=== PATIENT | female | born 1985 | race Hispanic/Latino ===

== ENCOUNTER 2018-05-14 19:54 | Emergency (ER) | payer SELFPAY ==
[~2018-05-14] VITALS: Ht 162.6 cm; Wt 111.0 kg
[~2018-05-14 19:54] MED LIST: AMLODIPINE10 MG OR; ANAPROX DS550 MG OR; CIPROFLOXACN500 MG PO; CLONIDINE0.1 MG OR; CYCLOBENZAPR10 MG PO; DENIES CURRENT MEDS; ERYTHROMYCIN BAS1 GM OS; FERROUS SUL1 XX; FLEXERIL; IRON18 M1 PO; LORTAB 7.57.5 MG PO; LORTAB5 PO; MACRODANTIN50 MG PO; MEDDOSEPAK PO; METOPROL TAR50 MG OR; NAPROSYN500 MG PO; NO; NO MEDS; NORCO1 TA1 PO; PERCOCET 5/325M1 TAB PO; PROTONIX40 M2 PO; PROVENTIL0.083 % IN; TAM75CAP PO; TRAMADOL HCL50 MG OR; ULTRAM50 M1 PO
[2018-05-14 20:20] LABS: INFLUENZA A NONE DETECTED (NONE DETECT)
[2018-05-14 20:21] LABS: INFLUENZA B NONE DETECTED (NONE DETECT)
[2018-05-14] MEDS ORDERED: CEPHALEXIN500 M1 PO (20:24)
[2018-05-14] MEDS ORDERED: ROBITUSSIN AC10 ML PO (20:24)
[2018-05-14 21:00] VITALS: BP 170/77
== END 2018-05-14 21:02 | disposition home or self-care (01) | DRG 153 ==
LOC: ED 19:54
PROVIDERS: Emergency Medicine
DX: J06.9 Acute upper respiratory infection, unspecified (principal); R05 Cough; R09.81 Nasal congestion; R51 Headache

== ENCOUNTER 2018-06-01 15:54 | Emergency (ER) | payer SELFPAY ==
[~2018-06-01] VITALS: Ht 162.6 cm; Wt 111.0 kg
[~2018-06-01 15:54] MED LIST changes: +CEPHALEXIN500 M1 PO; +ROBITUSSIN AC10 ML PO
[2018-06-01] MEDS ORDERED: FLEXERIL PO (16:52)
[2018-06-01] MEDS ORDERED: NAPROSYN500 MG PO (16:52)
[2018-06-01 16:54] VITALS: BP 147/93
== END 2018-06-01 17:00 | disposition home or self-care (01) | DRG 552 ==
LOC: ED 15:54
DX: S13.9XXA Sprain of joints and ligaments of unspecified parts of neck, initial encounter (principal); X58.XXXA Exposure to other specified factors, initial encounter

== ENCOUNTER 2018-09-27 19:46 | Emergency (ER) | payer SELFPAY ==
[~2018-09-27] VITALS: Ht 162.6 cm; Wt 113.2 kg
[~2018-09-27 19:46] MED LIST changes: +FLEXERIL PO
[2018-09-27] MEDS ORDERED: VOLTAREN - GENE75 MG PO (22:15)
[2018-09-27] MEDS ORDERED: TRAMADOL HCL50 MG PO (22:15)
[2018-09-27 22:35] VITALS: BP 151/85
== END 2018-09-27 22:35 | disposition home or self-care (01) | DRG 563 ==
LOC: ED 19:46
DX: S39.012A Strain of muscle, fascia and tendon of lower back, initial encounter (principal); M54.16 Radiculopathy, lumbar region

== ENCOUNTER 2019-07-12 | Emergency (ER) | payer SELFPAY ==
[~2019-07-12] MED LIST changes: +TRAMADOL HCL50 MG PO; +VOLTAREN - GENE75 MG PO
[2019-07-12] MEDS ORDERED: GUAIFENESIN AC PO (15:15)
[2019-07-12] MEDS ORDERED: PROVENTIL108 MCG/AC IN (15:15)
[2019-07-12] MEDS ORDERED: ZITHROMAX250 MG PO (15:15)
[2019-07-12] MEDS ORDERED: MEDDOSEPAK PO (15:15)
== END 2019-07-12 15:29 | disposition home or self-care (01) | DRG 203 ==
DX: J45.909 Unspecified asthma, uncomplicated (principal); J06.9 Acute upper respiratory infection, unspecified; R07.81 Pleurodynia

== ENCOUNTER 2019-08-24 | Emergency (ER) | payer SELFPAY ==
[~2019-08-24] MED LIST changes: +GUAIFENESIN AC PO; +PROVENTIL108 MCG/AC IN; +ZITHROMAX250 MG PO
[2019-08-24 08:51] LABS: URINE BILIRUBIN - DIPSTICK NEGATIVE (NEGATIVE); URINE BLOOD DIPSTICK LARGE (NEGATIVE); URINE COLOR YELLOW; URINE GLUCOSE - DIPSTICK NEGATIVE (NEGATIVE); URINE KETONE NEGATIVE (NEGATIVE); URINE LEUK ESTERASE NEGATIVE (NEGATIVE); URINE NITRITE - DIPSTICK NEGATIVE (Negative); URINE PH 5.5 (4.5-8.0); URINE PROTEIN - DIPSTICK NEGATIVE (NEG-TRACE); URINE SPECIFIC GRAVITY 1.025
[2019-08-24 08:54] LABS: URINE WBC 0-2 WBC/hpf (0-5)
[2019-08-24] MEDS ORDERED: TAM75CAP PO (09:54)
== END 2019-08-24 10:15 | disposition home or self-care (01) | DRG 153 ==
PROVIDERS: Emergency Medicine
DX: J11.1 Influenza due to unidentified influenza virus with other respiratory manifestations (principal)

== ENCOUNTER 2020-06-03 15:05 | Emergency (ER) | payer SELFPAY ==
[~2020-06-03] VITALS: Ht 162.6 cm; Wt 90.0 kg
[2020-06-03 18:08] LABS: URINE BILIRUBIN - DIPSTICK NEGATIVE (NEGATIVE); URINE BLOOD DIPSTICK NEGATIVE (NEGATIVE); URINE COLOR YELLOW; URINE GLUCOSE - DIPSTICK 100 mg/dL (NEGATIVE); URINE KETONE NEGATIVE (NEGATIVE); URINE NITRITE - DIPSTICK NEGATIVE (Negative); URINE PROTEIN - DIPSTICK NEGATIVE (NEG-TRACE); URINE UROBILINOGEN - DIPSTICK 0.2 E.U./dL (0.2)
[2020-06-03 18:23] LABS: URINE LEUK ESTERASE SMALL (NEGATIVE)
[2020-06-03 18:24] LABS: URINE BACTERIA FEW hpf; URINE EPITHELIAL CELLS FEW EPI/hpf (0-FEW)
[2020-06-03] MEDS ORDERED: CEPHALEXIN500 MG PO (18:46)
[2020-06-03] MEDS ORDERED: ROBITUSSIN AC10 ML PO (18:46)
[2020-06-03 19:34] VITALS: BP 164/84
== END 2020-06-03 19:38 | disposition home or self-care (01) | DRG 202 ==
LOC: ED 15:05
PROVIDERS: Emergency Medicine
DX: J45.909 Unspecified asthma, uncomplicated (principal); N39.0 Urinary tract infection, site not specified; I34.1 Nonrheumatic mitral (valve) prolapse; J06.9 Acute upper respiratory infection, unspecified; Z20.828 Contact with and (suspected) exposure to other viral communicable diseases

== ENCOUNTER 2020-08-08 02:09 | Emergency (ER) | payer OTHER ==
[~2020-08-08] VITALS: Ht 162.6 cm; Wt 100.0 kg
[~2020-08-08 02:09] MED LIST changes: +CEPHALEXIN500 MG PO
[2020-08-08 03:17] LABS: HEMATOCRIT 28.6 % (37.0-47.0); IMMATURE GRANULOCYTES 0.4 % (0.0-5.0); MEAN CELL VOLUME 63.7 fL CALC (80.0-100.0); MEAN CORPUSCULAR HGB 17.8 pG CALC (26.0-32.0); NEUT# 2.98 thou/uL (2.00-7.15); RED BLOOD COUNT 4.49 mill/uL (4.20-5.60); RED CELL DISTRI WIDTH 17.6 % (11.5-15.5)
[2020-08-08 03:18] LABS: URINE BILIRUBIN - DIPSTICK NEGATIVE (NEGATIVE); URINE BLOOD DIPSTICK LARGE (NEGATIVE); URINE COLOR YELLOW; URINE GLUCOSE - DIPSTICK NEGATIVE (NEGATIVE); URINE KETONE NEGATIVE (NEGATIVE); URINE SPECIFIC GRAVITY 1.015; URINE UROBILINOGEN - DIPSTICK 0.2 E.U./dL (0.2)
[2020-08-08 03:19] LABS: URINE LEUK ESTERASE SMALL (NEGATIVE); URINE NITRITE - DIPSTICK POSITIVE (Negative)
[2020-08-08 03:23] LABS: URINE PROTEIN - DIPSTICK NEGATIVE (NEG-TRACE)
[2020-08-08 03:26] LABS: URINE RBC 25-50 RBC/hpf (0-5)
[2020-08-08 03:27] LABS: URINE BACTERIA MANY hpf; URINE EPITHELIAL CELLS FEW EPI/hpf (0-FEW)
[2020-08-08 03:28] LABS: ALBUMIN 4.1 g/dL (3.2-5.0); ALKALINE PHOSPHATASE 95 u/l (38-126); AMYLASE 30 u/l (30-110); BILIRUBIN, TOTAL 0.5 mg/dL (0.0-1.4); BUN 9 mg/dL (7-17); BUN/CREATININE RATIO 16 (12-20 (CALC)); CARBON DIOXIDE 21 mmol/l (22-30); CHLORIDE 106 mmol/l (95-108); CREATININE 0.6 mg/dL (0.5-1.0); GFR > 60 ML/MIN (>=60 (CALC)); GFR FOR AFR.AMER. > 60 ML/MIN (>=60 (CALC)); LIPASE 69 u/l (23-300); POTASSIUM 3.9 mmol/l (3.5-5.1); SGOT/AST 20 u/l (14-36); TOTAL PROTEIN 7.8 g/dL (6.3-8.2)
[2020-08-08 03:45] LABS: ANION GAP 14 (6-22 (CALC)); SODIUM 137 mmol/l (137-146)
[2020-08-08 06:34] VITALS: BP 148/71
[2020-08-08] MEDS ORDERED: PROTONIX40 MG PO (06:39)
[2020-08-08] MEDS ORDERED: CIPROFLOXACN500 MG PO (06:40)
== END 2020-08-08 06:55 | disposition home or self-care (01) | DRG 690 ==
LOC: ED 02:09
PROVIDERS: Emergency Medicine
DX: N39.0 Urinary tract infection, site not specified (principal); I10 Essential (primary) hypertension; J45.909 Unspecified asthma, uncomplicated; I34.1 Nonrheumatic mitral (valve) prolapse; B96.20 Unspecified Escherichia coli [E. coli] as the cause of diseases classified elsewhere
CPT/HCPCS: J1956; Q9967; S0164

== ENCOUNTER 2020-10-09 21:35 | Emergency (ER) | payer SELFPAY ==
[~2020-10-09] VITALS: Ht 162.6 cm; Wt 97.0 kg
[~2020-10-09 21:35] MED LIST changes: +PROTONIX40 MG PO
[2020-10-09 22:28] LABS: HEMATOCRIT 28.2 % (37.0-47.0); HEMOGLOBIN 8.1 g/dl (12.0-16.0); IMMATURE GRANULOCYTES 0.1 % (0.0-5.0); MEAN CELL VOLUME 63.2 fL CALC (80.0-100.0); MEAN CORPUSCULAR HGB 18.2 pG CALC (26.0-32.0); MEAN CORPUSCULAR HGB CONC 28.7 g/dL CAL (32.0-36.0); NEUT# 4.06 thou/uL (2.00-7.15); RED BLOOD COUNT 4.46 mill/uL (4.20-5.60); RED CELL DISTRI WIDTH 18.1 % (11.5-15.5)
[2020-10-09 23:40] VITALS: BP 113/67
== END 2020-10-09 23:40 | disposition home or self-care (01) | DRG 866 ==
LOC: ED 21:35
PROVIDERS: Family Medicine
DX: B34.9 Viral infection, unspecified (principal); I10 Essential (primary) hypertension; J45.909 Unspecified asthma, uncomplicated; I34.1 Nonrheumatic mitral (valve) prolapse; Z20.822 Contact with and (suspected) exposure to COVID-19

== ENCOUNTER 2021-02-22 05:49 | Emergency (ER) | payer MEDICAID ==
[2021-02-22 06:30] LABS: URINE BILIRUBIN - DIPSTICK NEGATIVE (NEGATIVE); URINE COLOR YELLOW; URINE GLUCOSE - DIPSTICK NEGATIVE (NEGATIVE); URINE KETONE NEGATIVE (NEGATIVE); URINE PH 6.5 (4.5-8.0); URINE PROTEIN - DIPSTICK NEGATIVE (NEG-TRACE); URINE SPECIFIC GRAVITY <=1.005; URINE UROBILINOGEN - DIPSTICK 0.2 E.U./dL (0.2)
[2021-02-22 06:33] LABS: URINE BLOOD DIPSTICK NEGATIVE (NEGATIVE); URINE LEUK ESTERASE SMALL (NEGATIVE); URINE NITRITE - DIPSTICK NEGATIVE (Negative)
[2021-02-22 06:36] LABS: URINE BACTERIA MODERATE hpf; URINE EPITHELIAL CELLS MODERATE EPI/hpf (0-FEW)
[2021-02-22 06:52] LABS: HEMATOCRIT 29.6 % (37.0-47.0); HEMOGLOBIN 8.5 g/dl (12.0-16.0); IMMATURE GRANULOCYTES 0.2 % (0.0-5.0); MEAN CELL VOLUME 64.3 fL CALC (80.0-100.0); MEAN CORPUSCULAR HGB 18.5 pG CALC (26.0-32.0); MEAN CORPUSCULAR HGB CONC 28.7 g/dL CAL (32.0-36.0); NEUT# 3.3 thou/uL (2.00-7.15); RED BLOOD COUNT 4.6 mill/uL (4.20-5.60); RED CELL DISTRI WIDTH 17.7 % (11.5-15.5)
[2021-02-22 07:20] LABS: ALBUMIN 4.3 g/dL (3.2-5.0); ALKALINE PHOSPHATASE 81 u/l (38-126); ANION GAP 12 (6-22 (CALC)); BILIRUBIN, TOTAL 0.5 mg/dL (0.0-1.4); BUN 10 mg/dL (7-17); BUN/CREATININE RATIO 19 (12-20 (CALC)); CARBON DIOXIDE 23 mmol/l (22-30); CHLORIDE 105 mmol/l (95-108); CREATININE 0.5 mg/dL (0.5-1.0); GFR > 60 ML/MIN (>=60 (CALC)); GFR FOR AFR.AMER. > 60 ML/MIN (>=60 (CALC)); POTASSIUM 4.2 mmol/l (3.5-5.1); SGOT/AST 33 u/l (14-36); SODIUM 136 mmol/l (137-146); TOTAL PROTEIN 8.4 g/dL (6.3-8.2)
[2021-02-22 07:32] LABS: MYOGLOBIN 19 ng/mL (0 - 62)
[2021-02-22] MEDS ORDERED: OMNICEF300 M1 PO (08:49)
[2021-02-22 09:06] VITALS: BP 169/93
== END 2021-02-22 09:17 | disposition home or self-care (01) | DRG 552 ==
LOC: ED 05:49
PROVIDERS: Emergency Medicine
DX: M54.2 Cervicalgia (principal); M25.512 Pain in left shoulder; I10 Essential (primary) hypertension; J45.909 Unspecified asthma, uncomplicated; I34.1 Nonrheumatic mitral (valve) prolapse; F17.210 Nicotine dependence, cigarettes, uncomplicated; Z20.822 Contact with and (suspected) exposure to COVID-19

== ENCOUNTER 2021-03-02 06:10 | Emergency (ER) | payer MEDICAID ==
[~2021-03-02] VITALS: Ht 162.6 cm; Wt 92.0 kg
[~2021-03-02 06:10] MED LIST changes: +OMNICEF300 M1 PO
[2021-03-02 08:07] VITALS: BP 150/90
== END 2021-03-02 08:24 | disposition home or self-care (01) ==
LOC: ED 06:10
DX: U07.1 COVID-19 (principal); I10 Essential (primary) hypertension; J45.909 Unspecified asthma, uncomplicated; I34.1 Nonrheumatic mitral (valve) prolapse; F17.210 Nicotine dependence, cigarettes, uncomplicated

== ENCOUNTER 2021-05-17 20:29 | Emergency (ER) | payer SELFPAY ==
[~2021-05-17] VITALS: Ht 160 cm; Wt 93.0 kg
[2021-05-17 21:24] LABS: HEMATOCRIT 30.9 % (37.0-47.0); HEMOGLOBIN 9.3 g/dl (12.0-16.0); IMMATURE GRANULOCYTES 0.3 % (0.0-5.0); MEAN CELL VOLUME 63.1 fL CALC (80.0-100.0); MEAN CORPUSCULAR HGB CONC 30.1 g/dL CAL (32.0-36.0); NEUT# 4.87 thou/uL (2.00-7.15); RED BLOOD COUNT 4.9 mill/uL (4.20-5.60); RED CELL DISTRI WIDTH 16.9 % (11.5-15.5)
[2021-05-17 21:34] LABS: HCG SERUM/URINE (NEG/POS) NEGATIVE (NEGATIVE)
[2021-05-17 21:36] LABS: ANION GAP 14 (6-22 (CALC)); BUN 8 mg/dL (7-17); BUN/CREATININE RATIO 14 (12-20 (CALC)); CARBON DIOXIDE 24 mmol/l (22-30); CHLORIDE 106 mmol/l (95-108); CREATININE 0.6 mg/dL (0.5-1.0); GFR > 60 ML/MIN (>=60 (CALC)); GFR FOR AFR.AMER. > 60 ML/MIN (>=60 (CALC)); POTASSIUM 4.1 mmol/l (3.5-5.1); SODIUM 140 mmol/l (137-146)
[2021-05-17] MEDS ORDERED: VENTOLIN HFA IN (22:18)
[2021-05-17 23:55] VITALS: BP 160/69
== END 2021-05-17 23:40 | disposition home or self-care (01) | DRG 153 ==
LOC: ED 20:29
PROVIDERS: Family Medicine
DX: J06.9 Acute upper respiratory infection, unspecified (principal); I10 Essential (primary) hypertension; J45.909 Unspecified asthma, uncomplicated; F17.200 Nicotine dependence, unspecified, uncomplicated; Z20.822 Contact with and (suspected) exposure to COVID-19

== ENCOUNTER 2022-02-08 18:26 | Emergency (ER) | payer MEDICAID ==
[~2022-02-08] VITALS: Ht 160 cm; Wt 95.5 kg
[~2022-02-08 18:26] MED LIST changes: +BACTRIM DS1 TAB PO; +VENTOLIN HFA IN
[2022-02-08 18:48] VITALS: BP 162/93
[2022-02-08] MEDS ORDERED: NAPROXEN500 MG PO (20:18)
[2022-02-08] MEDS ORDERED: METHOCARBAMOL500 MG PO (20:18)
[2022-02-08 20:30] VITALS: BP 152/72
== END 2022-02-08 20:34 | disposition home or self-care (01) ==
LOC: ED 18:26
DX: M54.42 Lumbago with sciatica, left side (principal); S39.012A Strain of muscle, fascia and tendon of lower back, initial encounter; I10 Essential (primary) hypertension; J45.909 Unspecified asthma, uncomplicated; I34.1 Nonrheumatic mitral (valve) prolapse; F17.200 Nicotine dependence, unspecified, uncomplicated; X58.XXXA Exposure to other specified factors, initial encounter

== ENCOUNTER 2022-07-31 07:54 | Emergency (ER) | payer MEDICAID ==
[2022-07-31] VITALS (10 sets, daily range): BP systolic 125–160; BP diastolic 66–94
[~2022-07-31] VITALS: Ht 160 cm; Wt 93.8 kg
[~2022-07-31 07:54] MED LIST changes: +METHOCARBAMOL500 MG PO; +NAPROXEN500 MG PO
[2022-07-31 08:45] LABS: BASO% 0.3 % (0-3); EOS% 3.9 % (0-8); HEMATOCRIT 28.8 % (37.0-47.0); HEMOGLOBIN 9.1 g/dl (12.0-16.0); IMMATURE GRANULOCYTES 0.2 % (0.0-5.0); LYMPH% 18.4 % (15-41); MEAN CORPUSCULAR HGB 22.1 pG CALC (26.0-32.0); MEAN CORPUSCULAR HGB CONC 31.6 g/dL CAL (32.0-36.0); MONO% 7.3 % (2-13); NEUT# 6.05 thou/uL (2.00-7.15); NEUT% 69.9 % (42-76); RED BLOOD COUNT 4.11 mill/uL (4.20-5.60)
[2022-07-31 08:48] LABS: MEAN CELL VOLUME 70.1 fL CALC (80.0-100.0)
[2022-07-31 09:08] LABS: ANION GAP 9 (6-22 (CALC)); BUN 7 mg/dL (7-17); BUN/CREATININE RATIO 12 (12-20 (CALC)); CARBON DIOXIDE 23 mmol/l (22-30); CHLORIDE 108 mmol/l (95-108); CREATININE 0.5 mg/dL (0.5-1.0); GFR FOR AFR.AMER. > 60 ML/MIN (>=60 (CALC)); GFR OTHER RACES > 60 ML/MIN (>=60 (CALC)); POTASSIUM 3.8 mmol/l (3.5-5.1); SODIUM 136 mmol/l (137-146)
[2022-07-31] MEDS ORDERED: PENICILLIN V P500 MG PO (10:17)
[2022-07-31] MEDS ORDERED: CELEBREX100 M1 PO (10:17)
== END 2022-07-31 10:30 | disposition home or self-care (01) ==
LOC: ED 07:54
PROVIDERS: Emergency Medicine
DX: K08.89 Other specified disorders of teeth and supporting structures (principal); J45.909 Unspecified asthma, uncomplicated; I10 Essential (primary) hypertension; I34.1 Nonrheumatic mitral (valve) prolapse; F17.200 Nicotine dependence, unspecified, uncomplicated
CPT/HCPCS: Q9967

== ENCOUNTER 2022-12-25 17:40 | Emergency (ER) | payer MEDICAID ==
[~2022-12-25] VITALS: Ht 160 cm; Wt 98.0 kg
[~2022-12-25 17:40] MED LIST changes: +CELEBREX100 M1 PO; +PENICILLIN V P500 MG PO
[2022-12-25 17:56] VITALS: BP 149/98
[2022-12-25 18:01] VITALS: BP 145/101
[2022-12-25] MEDS ORDERED: DIFLUCAN150 MG PO (18:02)
[2022-12-25] MEDS ORDERED: KURIC21 EX (18:02)
[2022-12-25 18:39] VITALS: BP 145/101
== END 2022-12-25 18:44 | disposition home or self-care (01) ==
LOC: ED 17:40
DX: B35.3 Tinea pedis (principal); I10 Essential (primary) hypertension; J45.909 Unspecified asthma, uncomplicated; F17.200 Nicotine dependence, unspecified, uncomplicated

== ENCOUNTER 2023-03-18 18:00 | Emergency (ER) | payer MEDICAID ==
[~2023-03-18] VITALS: Ht 160 cm; Wt 95.4 kg
[~2023-03-18 18:00] MED LIST changes: +DIFLUCAN150 MG PO; +KURIC21 EX
[2023-03-18 18:06] VITALS: BP 181/123
[2023-03-18 18:10] VITALS: BP 168/96
[2023-03-18 18:46] LABS: BASO% 0.6 % (0-3); EOS% 1.8 % (0-8); HEMATOCRIT 33.5 % (37.0-47.0); HEMOGLOBIN 10.3 g/dl (12.0-16.0); IMMATURE GRANULOCYTES 0.2 % (0.0-5.0); MEAN CORPUSCULAR HGB 20.2 pG CALC (26.0-32.0); MEAN CORPUSCULAR HGB CONC 30.7 g/dL CAL (32.0-36.0); MONO% 6.3 % (2-13); NEUT# 6.49 thou/uL (2.00-7.15); NEUT% 69.1 % (42-76); RED BLOOD COUNT 5.1 mill/uL (4.20-5.60); RED CELL DISTRI WIDTH 16.9 % (11.5-15.5)
[2023-03-18 18:51] LABS: MEAN CELL VOLUME 65.7 fL CALC (80.0-100.0)
[2023-03-18 18:56] LABS: ALBUMIN 4.4 g/dL (3.2-5.0); ALKALINE PHOSPHATASE 98 u/l (38-126); ANION GAP 14 (6-22 (CALC)); BILIRUBIN, TOTAL 0.7 mg/dL (0.02-1.3); BUN 11 mg/dL (7-17); BUN/CREATININE RATIO 16 (12-20 (CALC)); CARBON DIOXIDE 22 mmol/l (22-30); CHLORIDE 105 mmol/l (95-108); CREATININE 0.7 mg/dL (0.5-1.0); GFR FOR AFR.AMER. > 60 ML/MIN (>=60 (CALC)); GFR OTHER RACES > 60 ML/MIN (>=60 (CALC)); POTASSIUM 3.5 mmol/l (3.5-5.1); SGOT/AST 27 u/l (14-36); SODIUM 137 mmol/l (137-146); TOTAL PROTEIN 8.3 g/dL (6.3-8.2)
[2023-03-18 21:06] VITALS: BP 157/69
[2023-03-18] MEDS ORDERED: MEDDOSEPAK PO (21:12)
[2023-03-18] MEDS ORDERED: NAPROXEN500 MG PO (21:12)
[2023-03-18] MEDS ORDERED: CYCLOBENZAPRINE10 MG PO (21:13)
[2023-03-18 21:16] VITALS: BP 155/76
[2023-03-18 21:46] VITALS: BP 136/85
[2023-03-18 22:03] VITALS: BP 132/77
== END 2023-03-18 22:03 | disposition home or self-care (01) ==
LOC: ED 18:00
PROVIDERS: Family Medicine
DX: M54.12 Radiculopathy, cervical region (principal); I10 Essential (primary) hypertension; E66.9 Obesity, unspecified; J45.909 Unspecified asthma, uncomplicated; I34.1 Nonrheumatic mitral (valve) prolapse; F17.200 Nicotine dependence, unspecified, uncomplicated

== ENCOUNTER 2023-07-10 14:00 | Emergency (ER) | payer MEDICAID ==
[~2023-07-10] VITALS: Ht 160 cm; Wt 83.0 kg
[~2023-07-10 14:00] MED LIST changes: +CYCLOBENZAPRINE10 MG PO
[2023-07-10] MEDS ORDERED: METHOCARBAMOL500 MG PO (16:45)
[2023-07-10] MEDS ORDERED: PREDNISONE20 MG PO (16:45)
[2023-07-10] MEDS ORDERED: NAPROXEN500 MG PO (16:45)
[2023-07-10 17:06] VITALS: BP 150/95
== END 2023-07-10 17:07 | disposition home or self-care (01) ==
LOC: ED 14:00
DX: M54.42 Lumbago with sciatica, left side (principal); S39.012A Strain of muscle, fascia and tendon of lower back, initial encounter; I10 Essential (primary) hypertension; J45.909 Unspecified asthma, uncomplicated; I34.1 Nonrheumatic mitral (valve) prolapse; F17.200 Nicotine dependence, unspecified, uncomplicated; X58.XXXA Exposure to other specified factors, initial encounter

== ENCOUNTER 2024-02-17 20:54 | Emergency (ER) | payer SELFPAY ==
[~2024-02-17] VITALS: Ht 160 cm; Wt 101.0 kg
[~2024-02-17 20:54] MED LIST changes: +ATIVAN1 MG PO; +NEURONTIN300 MG PO; +PREDNISONE20 MG PO
[2024-02-17] MEDS ORDERED: ACETAMINOPHEN 500 MG TAB PO ONE (21:10)
[2024-02-17] MEDS ORDERED: HYDROcodone POLISTIREX/CHLORPH 5 ML UDC PO ONE (21:10)
[2024-02-17] MEDS ORDERED: IBUPROFEN 600 MG/TAB PO ONE (21:10)
[2024-02-17 21:27] LABS: BASO% 0.8 % (0-3); EOS% 8.8 % (0-8); HEMATOCRIT 32.6 % (37.0-47.0); HEMOGLOBIN 9.7 g/dl (12.0-16.0); IMMATURE GRANULOCYTES 0.2 % (0.0-5.0); LYMPH% 25.2 % (15-41); MEAN CORPUSCULAR HGB 19.6 pG CALC (26.0-32.0); MEAN CORPUSCULAR HGB CONC 29.8 g/dL CAL (32.0-36.0); MONO% 10.3 % (2-13); NEUT# 3.23 thou/uL (2.00-7.15); NEUT% 54.7 % (42-76); RED BLOOD COUNT 4.94 mill/uL (4.20-5.60); RED CELL DISTRI WIDTH 16.3 % (11.5-15.5)
[2024-02-17 22:15] VITALS: BP 161/92
== END 2024-02-17 22:15 | disposition home or self-care (01) | DRG 179 ==
LOC: ED 20:54
PROVIDERS: Family Medicine
DX: U07.1 COVID-19 (principal); R05.9 Cough, unspecified; R09.89 Other specified symptoms and signs involving the circulatory and respiratory systems; R51.9 Headache, unspecified; R52 Pain, unspecified; I10 Essential (primary) hypertension; I34.1 Nonrheumatic mitral (valve) prolapse; J45.909 Unspecified asthma, uncomplicated; F17.200 Nicotine dependence, unspecified, uncomplicated

== ENCOUNTER 2024-03-31 23:53 | Emergency (ER) | payer SELFPAY ==
[~2024-03-31] VITALS: Ht 160 cm; Wt 102.0 kg
[2024-04-01] MEDS ORDERED: traMADol HCL 50 MG/TAB PO ONE (00:15)
[2024-04-01] MEDS ORDERED: methylPREDNISolone SODIUM SUCC 125 MG/2 ML SDV IM ONE (00:15)
[2024-04-01] MEDS ORDERED: ACETAMINOPHEN 500 MG TAB PO ONE (00:15)
[2024-04-01] MEDS ORDERED: KETOROLAC TROMETHAMINE 30 MG/ML SDV IM ONE (00:15)
[2024-04-01] MEDS ORDERED: STERAPRED DS10 MG PO (01:28)
[2024-04-01 01:46] VITALS: BP 151/78
== END 2024-04-01 01:46 | disposition home or self-care (01) | DRG 552 ==
LOC: ED 23:53
DX: M54.42 Lumbago with sciatica, left side (principal); I10 Essential (primary) hypertension; J45.909 Unspecified asthma, uncomplicated; I34.1 Nonrheumatic mitral (valve) prolapse; F17.200 Nicotine dependence, unspecified, uncomplicated